=== PATIENT | male | born 1960 | race Caucasian/White ===

== ENCOUNTER → 2016-10-10 | Outpatient (CLI) | payer MEDICAID ==
[~2016-10-10] MED LIST: COMBIVENT1 AR2 IH; FLOVENT 11110 MCG/PU IH; HYDROCODONE BIT1 T45 PO; IBUPROFEN800 MG PO; NEURONTIN100 MG PO; PANTOPRAZOLE40 M1 PO; SINGULAIR10 MG PO
--- NOTE | 2016-10-10 18:44 | RADIOLOGY REPORT PS360 ---
PROCEDURE: 2-D M-mode and color Doppler study INDICATIONS FOR THE TEST: Chest pain COPD+ Heart Murmur Tobacco Smoking+ Palpitations Fatigue Syncope Edema+ Hypertension+Diabetes Mellitus Rheumatic Fever SOB+SPIVEY Obesity Hyperlipidemia+ Family History HD Additional History STENT PATIENT INFORMATION HEIGHT:68 WEIGHT:123 GENDER: Male B/P:120/59 2-D/M-MODE INTERPRETATION: 2-D MEASUREMENTS OBSERVED VALUES IN CMS Right Ventricular Dimension (RVDd) 2.3 Interventricular Septum (Thickness) 2.6 Left Ventricular Internal Dimensions(LVIDd) 4.0 Left Ventricular Posterior Wall (Thickness)(LVPWd) 1.2 Aortic Root 3.0 Aortic Cusp Separation 2.0 Left Atrial Dimensions (LAD) 4.7 2D 1. Left atrium is moderately enlarged, left ventricle is normal size, there is asymmetrical septal hypertrophy seen, proximal interventricular septum measured 2.6 cm, visually estimated ejection fraction is 60-65%, there is complete cavity obliteration during systole, there is no regional wall motion abnormality seen. 2. Right atrium is mildly enlarged, right ventricle is normal size and contractility. 3. The aortic valve is thickened and calcified, leaflet continue to display good mobility, morphologically there is no aortic stenosis. 4. The mitral valve leaflets are minimally thickened, there is systolic anterior motion of the mitral valve leaflets towards the left ventricular outflow tract. 5. The tricuspid valve appears to be structurally normal. 6. The pulmonic valve is not well visualized. 7. No significant pericardial effusion noted. DOPPLER INTERROGATION: 1. The aortic out flow velocity across the valve is normal, there is no aortic stenosis or aortic insufficiency however there is increased turbulence and increased velocity seen in the left ventricular outflow track suggesting some degree of left ventricular outflow tract dynamic obstruction, however these velocities are not accurately recorded to calculate gradient in the left ventricular outflow track. There is normal size were performed. 2. The mitral inflow velocity within normal range, there is no mitral stenosis, there is severe mitral regurgitation. 3. There is mild tricuspid regurgitation noted, calculated right ventricular systolic pressure is 50 mmHg consistent with moderate pulmonary hypertension. 4. The diastolic parameters are inconclusive. CONCLUSION: 1. Moderately enlarged left atrium, normal left ventricular size, asymmetrical septal hypertrophy seen as described above, visually estimated ejection fraction of 60-65% with no obvious regional wall motion abnormality. 2. Aortic valve is thickened and calcified, there is no aortic stenosis. 3. Systolic anterior motion of the mitral valve leaflets towards the left ventricular outflow track creating dynamic left ventricular outflow track obstruction, however the velocities are not accurately recorded, there is no Valsalva performed to calculate dynamic obstruction. There is no mitral stenosis, there is severe mitral regurgitation. 4. Mild tricuspid regurgitation, calculated right ventricular systolic pressure is 50 mmHg consistent with moderate pulmonary hypertension. 5. A repeat study with better Doppler technique is recommended to assess the degree of dynamic resting as well as provocable gradient.
== END ==
LOC: RT 07:58
DX: R01.1 Cardiac murmur, unspecified (principal); I25.10 Atherosclerotic heart disease of native coronary artery without angina pectoris; I10 Essential (primary) hypertension; E78.5 Hyperlipidemia, unspecified; Z01.818 Encounter for other preprocedural examination